=== PATIENT | female | born 1965 | race Caucasian/White ===

== ENCOUNTER 2017-04-19 14:41 | Outpatient (RCR) | payer OTHER, SELFPAY ==
[2017-04-19 15:17] VITALS: BP 135/78; PULSE 76; RESP 18; TEMP 36.1; BMI 31.1
--- NOTE | 2017-04-19 16:39 | PCM.WC.HP ---
(1) Dog bite of calf Status: Acute Current Visit: Yes Qualifiers: Encounter type: initial encounter Laterality: left Qualified Code(s): S81.852A - Open bite, left lower leg, initial encounter; W54.0XXA - Bitten by dog, initial encounter Code(s): S81.859A - Open bite, unspecified lower leg, initial encounter; W54.0XXA - Bitten by dog, initial encounter (2) Edema leg Status: Acute Current Visit: Yes Code(s): R60.0 - Localized edema (3) Pain in left lower leg Status: Acute Current Visit: Yes Code(s): M79.662 - Pain in left lower leg (4) Type 2 diabetes mellitus with other skin ulcer Status: Acute Current Visit: Yes Qualifiers: 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 Went to the ED in [place] where they sutured the bites closed. The wounds did not heal, and the patient has been applying antibiotic ointment BID. She is diabetic with blood sugar better controlled recently. Most recent A1c 7.5. Did have blood work done recently, will get results from her PCP. Has not had vascular testing done recently. Has 3 wounds on the L leg due to dog bites. Dog bite was from her own dog. Past Medical History Past Medical History: DM2, HTN, HLD, hypothyroid Surgical History: noncontributory Allergies/Adverse Reactions: Allergies latex Allergy (Verified 04/19/17 15:50) Rash Lives: Alone Smoking Status: Light Smoker (<10/day) Tobacco Use: Cigarettes Alcohol: Rare Drugs: None Review of Systems Constitutional: Denies: Chills, Fever, Weight Change Eyes: Denies: Pain, Vision Change HEENT: Denies: Difficulty Hearing, Difficulty Swallowing, Sinus Congestion Cardiovascular: Reports: Edema. Denies: Chest Pain, Palpitations Respiratory: Denies: Cough, Shortness of Breath Gastrointestinal: Denies: Diarrhea, Nausea, Vomiting Genitourinary: Denies: Dysuria, Hematuria Skin: Reports: Wounds - L leg Neurological: Reports: Numbness - L ankle Psychiatric: Reports: Anxiety. Denies: Homicidal Ideations, Suicidal Ideations Endocrine: Denies: Heat/ Cold Intolerance, Polydipsia, Polyuria Hematologic/ Lymphatic: Denies: Easy Bruising, Easy Bleeding, Hx of blood clot - Physical Exam Vital Signs Temp Pulse Resp BP 96.9 F L 76 18 135/78 H 04/19/17 15:17 04/19/17 15:17 04/19/17 15:17 04/19/17 15:17 General: Alert, Oriented x3, Cooperative, No apparent distress Extremities: No clubbing, No cyanosis, Capillary Refill Less than 3 Seconds, No Calf Tenderness, Edema - L leg, Peripheral Pulses Normal Skin: Ulcer/ Wound - L santoyo and L calf with no erythema, no malodor, no pus, no calor; does have mild pain, but no other clinical signs of acute bacterial infection noted. See wound/edema assessment below. Wound Measurements and Assessment WC - Nurse 1 - General Ulcer Measurement Start: 04/19/17 15:17 Freq: Status: Active Protocol: Activity Type Activity Date Activity User E-Sign Co-Sign Detail Recorded Client Recorded Date Recorded By Document 04/19/17 15:17 [id number] 04/19/17 15:44 ASHA 04/19/17 15:17 Wound Center Nurse 1 [Ulcer Assessment] 3-left posterior calf -Combined with other wound No -Current Size (cm) - Length 0.6 -Current Size (cm) - Width 0.6 -Current Size (cm) - Depth 0.2 -Total Square Cm 0.36 -Photo Taken Yes -Epithelialization Small 1-33% -Tunneling No -Undermining/Tunneling No -Circular Undermining No -Classification - Flores Grading ( Grade 2 Diabetic Ulcer) -Exudate Amt Small (1-33%) -Exudate Type Serosanguineous -Wound Margin Flat & Intact -Granulation Amt Large (67-100%) -Granulation Quality Red -Slough/Fibrin Yes -Necrosis Amt Small (1-33%) -Necrotic Tissue Type Adherent Slough -Structure Exposed N/A -Texture (Denice-wound Skin Appearance) Assessed Localized Edema -Moisture (Denice-wound Skin Appearance Assessed ) Dry/Scaly -Color (Denice-wound Skin Appearance) Assessed -Temperature (Denice-wound Skin No Abnormality Appearance) (Pt Warm) -Tenderness on Palpation (Denice-wound No Skin Appearance) -Ulcer Cleansing Wound Cleanser -Foul Odor after Cleansing No -Anesthetic Used 5% Lidocaine Gel 2-left anterior santoyo cluster -Combined with other wound No -Current Size (cm) - Length 1.8 -Current Size (cm) - Width 9.8 -Current Size (cm) - Depth 0.2 -Total Square Cm 17.64 -Photo Taken Yes -Epithelialization Medium 34-66% -Tunneling No -Undermining/Tunneling No -Circular Undermining No -Classification - Flores Grading ( Grade 2 Diabetic Ulcer) -Exudate Amt Medium (34-66%) -Exudate Type Serosanguineous -Wound Margin Flat & Intact -Granulation Amt Large (67-100%) -Granulation Quality Red -Slough/Fibrin Yes -Necrosis Amt Medium (34-66%) -Necrotic Tissue Type Adherent Slough -Structure Exposed N/A -Texture (Denice-wound Skin Appearance) Assessed Localized Edema -Moisture (Denice-wound Skin Appearance Assessed ) Dry/Scaly -Color (Denice-wound Skin Appearance) Assessed Hemosiderin Staining -Temperature (Denice-wound Skin No Abnormality Appearance) (Pt Warm) -Tenderness on Palpation (Denice-wound No Skin Appearance) -Ulcer Cleansing Wound Cleanser -Foul Odor after Cleansing No -Anesthetic Used 5% Lidocaine Gel 1-left lateral santoyo superior -Combined with other wound No -Current Size (cm) - Length 0.8 -Current Size (cm) - Width 1.0 -Current Size (cm) - Depth 0.1 -Total Square Cm 0.80 -Photo Taken Yes -Epithelialization Medium 34-66% -Tunneling No -Undermining/Tunneling No -Circular Undermining No -Classification - Flores Grading ( Grade 2 Diabetic Ulcer) -Exudate Amt Small (1-33%) -Exudate Type Serosanguineous -Wound Margin Flat & Intact -Granulation Amt Large (67-100%) -Granulation Quality Red -Slough/Fibrin Yes -Necrosis Amt Small (1-33%) -Necrotic Tissue Type Adherent Slough -Structure Exposed N/A -Texture (Denice-wound Skin Appearance) Assessed Localized Edema -Moisture (Denice-wound Skin Appearance Assessed ) Dry/Scaly -Color (Denice-wound Skin Appearance) Assessed -Temperature (Denice-wound Skin No Abnormality Appearance) (Pt Warm) -Tenderness on Palpation (Denice-wound No Skin Appearance) -Ulcer Cleansing Wound Cleanser -Foul Odor after Cleansing No -Anesthetic Used 5% Lidocaine Gel [Edema Assessment] -Lower Limb Edema Present Yes -Right Calf (cm) 42.0 -Right Ankle (cm) 22.2 -Left Calf (cm) 41.6 -Left Ankle (cm) 25.0 WC - Nurse 2 - General Ulcer CM Notes Start: 04/19/17 15:17 Freq: Status: Active Protocol: Activity Type Activity Date Activity User E-Sign Co-Sign Detail Recorded Client Recorded Date Recorded By Document 04/19/17 16:27 MW [id number] 04/19/17 16:38 MW 04/19/17 16:27 Wound Center Nurse 2 [Procedure/Treatment] 3-left posterior calf -Time 16:30 -Correct Patient Yes -Correct Side, Site, Position Yes -Correct Procedure Yes -Procedure Performed Yes -Type of Procedure Debridement -Clinical Debridement Subcutaneous -Post Debridement Size (cm) - Length 0.5 -Post Debridement Size (cm) - Width 0.8 -Post Debridement Size (cm) - Depth 0.2 -Total Square Cm 0.40 2-left anterior santoyo cluster -Time 16:36 -Correct Patient Yes -Correct Side, Site, Position Yes -Correct Procedure Yes -Procedure Performed Yes -Type of Procedure Debridement -Clinical Debridement Subcutaneous -Post Debridement Size (cm) - Length 10.2 -Post Debridement Size (cm) - Width 1.2 -Post Debridement Size (cm) - Depth 0.3 -Total Square Cm 12.24 -Wound/Ulcer Outcome Not Healed -Ulcer Cleansing Rinsed/ Irrigated with Saline -Foul Odor after Cleansing No -Bioengineered Tissue No -Bleeding Controlled with Pressure -Treatment Response Procedure Tolerated Well 1-left lateral santoyo superior -Time 16:35 -Correct Patient Yes -Correct Side, Site, Position Yes -Correct Procedure Yes -Procedure Performed Yes -Type of Procedure Debridement -Clinical Debridement Subcutaneous -Post Debridement Size (cm) - Length 0.9 -Post Debridement Size (cm) - Width 1.0 -Post Debridement Size (cm) - Depth 0.1 -Total Square Cm 0.90 -Wound/Ulcer Outcome Not Healed -Ulcer Cleansing Rinsed/ Irrigated with Saline -Foul Odor after Cleansing No -Bioengineered Tissue No -Bleeding Controlled with NA -Treatment Response Procedure Tolerated Well [See Physician Procedure note for Specifics] Pain Scale: 0-10 Numeric [Pain] -Is Patient Pain Free? Yes Musculoskeletal: No Tenderness to Palpation of Joints or Extremities, No Muscle Wasting Neurological: Deep Tendon Reflexes 2+/4 and Symmetrical, Neuro grossly intact, Motor Exam 5/5 strength throughout, Muscle tone normal, Sensory exam intact to light touch and pain - except absent light touch to anterior L ankle, Coordination normal, Gait narrow based and stable Psych/Mental Status: Alert and oriented to time, place, person, mood and affect - wnl Debridement Note Post-Debridement Measurements/Treatment WC - Nurse 2 - General Ulcer CM Notes Start: 04/19/17 15:17 Freq: Status: Active Protocol: Activity Type Activity Date Activity User E-Sign Co-Sign Detail Recorded Client Recorded Date Recorded By Document 04/19/17 16:27 MW [id number] 04/19/17 16:38 MW 04/19/17 16:27 Wound Center Nurse 2 3-left posterior calf -Time 16:30 -Correct Patient Yes -Correct Side, Site, Position Yes -Correct Procedure Yes -Procedure Performed Yes -Type of Procedure Debridement -Clinical Debridement Subcutaneous -Post Debridement Size (cm) - Length 0.5 -Post Debridement Size (cm) - Width 0.8 -Post Debridement Size (cm) - Depth 0.2 -Total Square Cm 0.40 2-left anterior santoyo cluster -Time 16:36 -Correct Patient Yes -Correct Side, Site, Position Yes -Correct Procedure Yes -Procedure Performed Yes -Type of Procedure Debridement -Clinical Debridement Subcutaneous -Post Debridement Size (cm) - Length 10.2 -Post Debridement Size (cm) - Width 1.2 -Post Debridement Size (cm) - Depth 0.3 -Total Square Cm 12.24 -Wound/Ulcer Outcome Not Healed -Ulcer Cleansing Rinsed/ Irrigated with Saline -Foul Odor after Cleansing No -Bioengineered Tissue No -Bleeding Controlled with Pressure -Treatment Response Procedure Tolerated Well 1-left lateral santoyo superior -Time 16:35 -Correct Patient Yes -Correct Side, Site, Position Yes -Correct Procedure Yes -Procedure Performed Yes -Type of Procedure Debridement -Clinical Debridement Subcutaneous -Post Debridement Size (cm) - Length 0.9 -Post Debridement Size (cm) - Width 1.0 -Post Debridement Size (cm) - Depth 0.1 -Total Square Cm 0.90 -Wound/Ulcer Outcome Not Healed -Ulcer Cleansing Rinsed/ Irrigated with Saline -Foul Odor after Cleansing No -Bioengineered Tissue No -Bleeding Controlled with NA -Treatment Response Procedure Tolerated Well Pain Scale: 0-10 Numeric Is Patient Pain Free? Yes Wound debrided: L santoyo x 2, L calf Laterality: Left Wound Grade/Stage: Full thickness traumatic wounds Type of Debridement: Excisional debridement Anesthesia Used: 4% Lidocaine Solution Depth: Down to and including healthy tissue, in the subcutaneous layer Percentage of wound debrided: 100 Instrument Used: 3mm curette Tissue Removed: fibrous slough Severity: Fat Layer Exposed Amount of bleeding with debridement: Mild Bleeding Controlled with: Pressure, Compression and gauze Patient tolerated procedure well Assessment/Plan Active Problems Dog bite of calf (Acute) Edema leg (Acute) Pain in left lower leg (Acute) Type 2 diabetes mellitus with other skin ulcer (Acute) Assessment: See diagnoses 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 SQ/excisional debridement L leg wounds as above. Stop previous dressings. Start daniel, collagen hydrogel, adaptic, ABDs. Moderate compression spandagrip for edema. Venous duplex ordered. Pt refuses arterial testing due to location of wounds, but pedal pulses are strongly palpable and confirmed with handheld doppler. If wounds do not improve, will order arterial testing. Pt recently had lab work done, will obtain from her PCP. Discussed importance of tobacco cessation and smoking's effects on wound healing. Discussed importance of tight blood sugar control. Discussed importance of adequate nutrition, especially increased protein intake, to promote healing. Keep dry in shower, wash separately with dressing changes. Monitor for redness, pus, malodor, warmth, increased pain, increased swelling as well as for N/V/F/C and go to the ED with these. RTC 1 week, call with questions prior to f/u appt.
--- NOTE | 2017-04-19 16:49 | HP.PCM_ITS ---
(1) Dog bite of calf Status: Acute Current Visit: Yes Qualifiers: Encounter type: initial encounter Laterality: left Qualified Code(s): S81.852A - Open bite, left lower leg, initial encounter; W54.0XXA - Bitten by dog, initial encounter Code(s): S81.859A - Open bite, unspecified lower leg, initial encounter; W54.0XXA - Bitten by dog, initial encounter (2) Edema leg Status: Acute Current Visit: Yes Code(s): R60.0 - Localized edema (3) Pain in left lower leg Status: Acute Current Visit: Yes Code(s): M79.662 - Pain in left lower leg (4) Type 2 diabetes mellitus with other skin ulcer Status: Acute Current Visit: Yes Qualifiers: Diabetes mellitus long term care administrator insulin use: unspecified half-way insulin use status Qualified Code(s): E11.622 - Type 2 diabetes mellitus with other skin ulcer; L98.499 - Non-pressure chronic ulcer of skin of other sites with unspecified severity Code(s): E11.622 - Type 2 diabetes mellitus with other skin ulcer; L98.499 - Non -pressure chronic ulcer of skin of other sites with unspecified severity History of Present Illness Date of Service: 04/19/17 Chief Complaint: L calf and leg wounds secondary to dog bite History of Wound: L leg and santoyo wounds secondary to dog bite on March 15. Went to the ED in [place] where they sutured the bites closed. The wounds did not heal, and the patient has been applying antibiotic ointment BID. She is diabetic with blood sugar better controlled recently. Most recent A1c 7.5. Did have blood work done recently, will get results from her PCP. Has not had vascular testing done recently. Has 3 wounds on the L leg due to dog bites. Dog bite was from her own dog. Past Medical History Past Medical History: DM2, HTN, HLD, hypothyroid Surgical History: noncontributory Allergies/Adverse Reactions: Allergies latex Allergy (Verified 04/19/17 15:50) Rash Lives: Alone Smoking Status: Light Smoker (<10/day) Tobacco Use: Cigarettes Alcohol: Rare Drugs: None Review of Systems Constitutional: Denies: Chills, Fever, Weight Change Eyes: Denies: Pain, Vision Change HEENT: Denies: Difficulty Hearing, Difficulty Swallowing, Sinus Congestion Cardiovascular: Reports: Edema. Denies: Chest Pain, Palpitations Respiratory: Denies: Cough, Shortness of Breath Gastrointestinal: Denies: Diarrhea, Nausea, Vomiting Genitourinary: Denies: Dysuria, Hematuria Skin: Reports: Wounds - L leg Neurological: Reports: Numbness - L ankle Psychiatric: Reports: Anxiety. Denies: Homicidal Ideations, Suicidal Ideations Endocrine: Denies: Heat/ Cold Intolerance, Polydipsia, Polyuria Hematologic/ Lymphatic: Denies: Easy Bruising, Easy Bleeding, Hx of blood clot - Physical Exam Vital Signs Temp Pulse Resp BP 96.9 F L 76 18 135/78 H 04/19/17 15:17 04/19/17 15:17 04/19/17 15:17 04/19/17 15:17 General: Alert, Oriented x3, Cooperative, No apparent distress Extremities: No clubbing, No cyanosis, Capillary Refill Less than 3 Seconds, No Calf Tenderness, Edema - L leg, Peripheral Pulses Normal Skin: Ulcer/ Wound - L santoyo and L calf with no erythema, no malodor, no pus, no calor; does have mild pain, but no other clinical signs of acute bacterial infection noted. See wound/edema assessment below. Wound Measurements and Assessment WC - Nurse 1 - General Ulcer Measurement Start: 04/19/17 15:17 Freq: Status: Active Protocol: Activity Type Activity Date Activity User E-Sign Co-Sign Detail Recorded Client Recorded Date Recorded By Document 04/19/17 15:17 [id number] 04/19/17 15:44 ASHA 04/19/17 15:17 Wound Center Nurse 1 [Ulcer Assessment] 3-left posterior calf -Combined with other wound No -Current Size (cm) - Length 0.6 -Current Size (cm) - Width 0.6 -Current Size (cm) - Depth 0.2 -Total Square Cm 0.36 -Photo Taken Yes -Epithelialization Small 1-33% -Tunneling No -Undermining/Tunneling No -Circular Undermining No -Classification - Flores Grading ( Grade 2 Diabetic Ulcer) -Exudate Amt Small (1-33%) -Exudate Type Serosanguineous -Wound Margin Flat & Intact -Granulation Amt Large (67-100%) -Granulation Quality Red -Slough/Fibrin Yes -Necrosis Amt Small (1-33%) -Necrotic Tissue Type Adherent Slough -Structure Exposed N/A -Texture (Denice-wound Skin Appearance) Assessed Localized Edema -Moisture (Denice-wound Skin Appearance Assessed ) Dry/Scaly -Color (Denice-wound Skin Appearance) Assessed -Temperature (Denice-wound Skin No Abnormality Appearance) (Pt Warm) -Tenderness on Palpation (Denice-wound No Skin Appearance) -Ulcer Cleansing Wound Cleanser -Foul Odor after Cleansing No -Anesthetic Used 5% Lidocaine Gel 2-left anterior santoyo cluster -Combined with other wound No -Current Size (cm) - Length 1.8 -Current Size (cm) - Width 9.8 -Current Size (cm) - Depth 0.2 -Total Square Cm 17.64 -Photo Taken Yes -Epithelialization Medium 34-66% -Tunneling No -Undermining/Tunneling No -Circular Undermining No -Classification - Flores Grading ( Grade 2 Diabetic Ulcer) -Exudate Amt Medium (34-66%) -Exudate Type Serosanguineous -Wound Margin Flat & Intact -Granulation Amt Large (67-100%) -Granulation Quality Red -Slough/Fibrin Yes -Necrosis Amt Medium (34-66%) -Necrotic Tissue Type Adherent Slough -Structure Exposed N/A -Texture (Denice-wound Skin Appearance) Assessed Localized Edema -Moisture (Denice-wound Skin Appearance Assessed ) Dry/Scaly -Color (Denice-wound Skin Appearance) Assessed Hemosiderin Staining -Temperature (Denice-wound Skin No Abnormality Appearance) (Pt Warm) -Tenderness on Palpation (Denice-wound No Skin Appearance) -Ulcer Cleansing Wound Cleanser -Foul Odor after Cleansing No -Anesthetic Used 5% Lidocaine Gel 1-left lateral santoyo superior -Combined with other wound No -Current Size (cm) - Length 0.8 -Current Size (cm) - Width 1.0 -Current Size (cm) - Depth 0.1 -Total Square Cm 0.80 -Photo Taken Yes -Epithelialization Medium 34-66% -Tunneling No -Undermining/Tunneling No -Circular Undermining No -Classification - Flores Grading ( Grade 2 Diabetic Ulcer) -Exudate Amt Small (1-33%) -Exudate Type Serosanguineous -Wound Margin Flat & Intact -Granulation Amt Large (67-100%) -Granulation Quality Red -Slough/Fibrin Yes -Necrosis Amt Small (1-33%) -Necrotic Tissue Type Adherent Slough -Structure Exposed N/A -Texture (Denice-wound Skin Appearance) Assessed Localized Edema -Moisture (Denice-wound Skin Appearance Assessed ) Dry/Scaly -Color (Denice-wound Skin Appearance) Assessed -Temperature (Denice-wound Skin No Abnormality Appearance) (Pt Warm) -Tenderness on Palpation (Denice-wound No Skin Appearance) -Ulcer Cleansing Wound Cleanser -Foul Odor after Cleansing No -Anesthetic Used 5% Lidocaine Gel [Edema Assessment] -Lower Limb Edema Present Yes -Right Calf (cm) 42.0 -Right Ankle (cm) 22.2 -Left Calf (cm) 41.6 -Left Ankle (cm) 25.0 WC - Nurse 2 - General Ulcer CM Notes Start: 04/19/17 15:17 Freq: Status: Active Protocol: Activity Type Activity Date Activity User E-Sign Co-Sign Detail Recorded Client Recorded Date Recorded By Document 04/19/17 16:27 MW [id number] 04/19/17 16:38 MW 04/19/17 16:27 Wound Center Nurse 2 [Procedure/Treatment] 3-left posterior calf -Time 16:30 -Correct Patient Yes -Correct Side, Site, Position Yes -Correct Procedure Yes -Procedure Performed Yes -Type of Procedure Debridement -Clinical Debridement Subcutaneous -Post Debridement Size (cm) - Length 0.5 -Post Debridement Size (cm) - Width 0.8 -Post Debridement Size (cm) - Depth 0.2 -Total Square Cm 0.40 2-left anterior santoyo cluster -Time 16:36 -Correct Patient Yes -Correct Side, Site, Position Yes -Correct Procedure Yes -Procedure Performed Yes -Type of Procedure Debridement -Clinical Debridement Subcutaneous -Post Debridement Size (cm) - Length 10.2 -Post Debridement Size (cm) - Width 1.2 -Post Debridement Size (cm) - Depth 0.3 -Total Square Cm 12.24 -Wound/Ulcer Outcome Not Healed -Ulcer Cleansing Rinsed/ Irrigated with Saline -Foul Odor after Cleansing No -Bioengineered Tissue No -Bleeding Controlled with Pressure -Treatment Response Procedure Tolerated Well 1-left lateral santoyo superior -Time 16:35 -Correct Patient Yes -Correct Side, Site, Position Yes -Correct Procedure Yes -Procedure Performed Yes -Type of Procedure Debridement -Clinical Debridement Subcutaneous -Post Debridement Size (cm) - Length 0.9 -Post Debridement Size (cm) - Width 1.0 -Post Debridement Size (cm) - Depth 0.1 -Total Square Cm 0.90 -Wound/Ulcer Outcome Not Healed -Ulcer Cleansing Rinsed/ Irrigated with Saline -Foul Odor after Cleansing No -Bioengineered Tissue No -Bleeding Controlled with NA -Treatment Response Procedure Tolerated Well [See Physician Procedure note for Specifics] Pain Scale: 0-10 Numeric [Pain] -Is Patient Pain Free? Yes Musculoskeletal: No Tenderness to Palpation of Joints or Extremities, No Muscle Wasting Neurological: Deep Tendon Reflexes 2+/4 and Symmetrical, Neuro grossly intact, Motor Exam 5/5 strength throughout, Muscle tone normal, Sensory exam intact to light touch and pain - except absent light touch to anterior L ankle, Coordination normal, Gait narrow based and stable Psych/Mental Status: Alert and oriented to time, place, person, mood and affect - wnl Debridement Note Post-Debridement Measurements/Treatment WC - Nurse 2 - General Ulcer CM Notes Start: 04/19/17 15:17 Freq: Status: Active Protocol: Activity Type Activity Date Activity User E-Sign Co-Sign Detail Recorded Client Recorded Date Recorded By Document 04/19/17 16:27 MW [id number] 04/19/17 16:38 MW 04/19/17 16:27 Wound Center Nurse 2 3-left posterior calf -Time 16:30 -Correct Patient Yes -Correct Side, Site, Position Yes -Correct Procedure Yes -Procedure Performed Yes -Type of Procedure Debridement -Clinical Debridement Subcutaneous -Post Debridement Size (cm) - Length 0.5 -Post Debridement Size (cm) - Width 0.8 -Post Debridement Size (cm) - Depth 0.2 -Total Square Cm 0.40 2-left anterior santoyo cluster -Time 16:36 -Correct Patient Yes -Correct Side, Site, Position Yes -Correct Procedure Yes -Procedure Performed Yes -Type of Procedure Debridement -Clinical Debridement Subcutaneous -Post Debridement Size (cm) - Length 10.2 -Post Debridement Size (cm) - Width 1.2 -Post Debridement Size (cm) - Depth 0.3 -Total Square Cm 12.24 -Wound/Ulcer Outcome Not Healed -Ulcer Cleansing Rinsed/ Irrigated with Saline -Foul Odor after Cleansing No -Bioengineered Tissue No -Bleeding Controlled with Pressure -Treatment Response Procedure Tolerated Well 1-left lateral santoyo superior -Time 16:35 -Correct Patient Yes -Correct Side, Site, Position Yes -Correct Procedure Yes -Procedure Performed Yes -Type of Procedure Debridement -Clinical Debridement Subcutaneous -Post Debridement Size (cm) - Length 0.9 -Post Debridement Size (cm) - Width 1.0 -Post Debridement Size (cm) - Depth 0.1 -Total Square Cm 0.90 -Wound/Ulcer Outcome Not Healed -Ulcer Cleansing Rinsed/ Irrigated with Saline -Foul Odor after Cleansing No -Bioengineered Tissue No -Bleeding Controlled with NA -Treatment Response Procedure Tolerated Well Pain Scale: 0-10 Numeric Is Patient Pain Free? Yes Wound debrided: L santoyo x 2, L calf Laterality: Left Wound Grade/Stage: Full thickness traumatic wounds Type of Debridement: Excisional debridement Anesthesia Used: 4% Lidocaine Solution Depth: Down to and including healthy tissue, in the subcutaneous layer Percentage of wound debrided: 100 Instrument Used: 3mm curette Tissue Removed: fibrous slough Severity: Fat Layer Exposed Amount of bleeding with debridement: Mild Bleeding Controlled with: Pressure, Compression and gauze Patient tolerated procedure well Assessment/Plan Active Problems Dog bite of calf (Acute) Edema leg (Acute) Pain in left lower leg (Acute) Type 2 diabetes mellitus with other skin ulcer (Acute) Assessment: See diagnoses Plan: 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 SQ/excisional debridement L leg wounds as above. Stop previous dressings. Start daniel, collagen hydrogel, adaptic, ABDs. Moderate compression spandagrip for edema. Venous duplex ordered. Pt refuses arterial testing due to location of wounds, but pedal pulses are strongly palpable and confirmed with handheld doppler. If wounds do not improve, will order arterial testing. Pt recently had lab work done, will obtain from her PCP. Discussed importance of tobacco cessation and smoking's effects on wound healing. Discussed importance of tight blood sugar control. Discussed importance of adequate nutrition, especially increased protein intake, to promote healing. Keep dry in shower, wash separately with dressing changes. Monitor for redness , pus, malodor, warmth, increased pain, increased swelling as well as for N/V/F/ C and go to the ED with these. RTC 1 week, call with questions prior to f/u appt.
== END 2017-04-20 23:59 ==
LOC: WC 14:41
PROVIDERS: Family Provider Nurse Practitioner Family; PCP Nurse Practitioner Family; Visit Provider Podiatrist Foot & Ankle Surgery
DX: S81.852A Open bite, left lower leg, initial encounter (principal); W54.0XXA Bitten by dog, initial encounter; R60.0 Localized edema; I10 Essential (primary) hypertension; E78.5 Hyperlipidemia, unspecified; E03.9 Hypothyroidism, unspecified; F17.210 Nicotine dependence, cigarettes, uncomplicated; E11.9 Type 2 diabetes mellitus without complications
CPT/HCPCS: 11042; 99203; G0463

== ENCOUNTER 2017-04-26 13:57 | Outpatient (RCR) | payer OTHER, SELFPAY ==
[2017-04-21 01:18] VITALS: PULSE 76; RESP 18; TEMP 36.1
--- NOTE | 2017-04-26 14:05 | VDLE_ITS ---
Reason For Study: Non-healing wound RIGHT LEFT CFV is compressible, spontaneous, phasic, CFV is compressible, spontaneous, phasic, competent and demonstrates normal competent, and demonstrates normal augmentation. augmentation. FV is compressible, spontaneous, phasic, FV is compressible, spontaneous, phasic, competent and demonstrates normal competent and demonstrates normal augmentation. augmentation. POP V is compressible, spontaneous, phasic, POP V is compressible, spontaneous, phasic, competent and demonstrates normal competent and demonstrates normal augmentation. augmentation. T/P Trunk is compressible. T/P Trunk is compressible. PTV is compressible. PTV is compressible. RT PerV is compressible. LT PerV is compressible. SFJ is competent SFJ is INCOMPETENT with reflux greater GSV is INCOMPETENT with reflux greater than .5 sec than .5 sec and diameter of .32 x .36 cm GSV is competent above knee SSV is competent. GSV is INCOMPETENT below knee with reflux Procedure greater than .5 sec and diameter of .38 Exam performed in department. x .40 cm A preliminary report was called and/or faxed SSV is INCOMPETENT with reflux greater to [facility]. than .5 sec and diameter of .33 x .34 cm. Interpretation Summary Deep veins of the lower extremities are bilaterally patent and compressible segmentally. There is no evidence of deep vein thrombosis on either side. Valvular competence appears intact within the proximal deep venous systems bilaterally. The greater saphenous veins appear bilaterally patent and compressible segmentally. The right sapheno-femoral junction is competent . The left sapheno- femoral junction is incompetent . The right greater saphenous vein appears segmentally incompetent. The left greater saphenous vein appears competent above the knee. The left greater saphenous vein appears incompetent below the knee. The right small saphenous vein is patent and competent. The left small saphenous vein is patent and incompetent. Ordering Physician: Braydon Robb Referring Physician: Geraldine Valdes NP-C Performed By: Consuelo Aceves RVT
== END 2017-05-21 23:59 ==
LOC: CVS 13:57
PROVIDERS: Family Provider Nurse Practitioner Family; PCP Nurse Practitioner Family; Visit Provider Podiatrist Foot & Ankle Surgery
DX: R60.0 Localized edema (principal); I87.2 Venous insufficiency (chronic) (peripheral); S81.852A Open bite, left lower leg, initial encounter; W54.0XXA Bitten by dog, initial encounter; E11.9 Type 2 diabetes mellitus without complications
CPT/HCPCS: 11042; 29581; 93970

== ENCOUNTER 2017-04-26 14:50 | Outpatient (RCR) | payer OTHER, SELFPAY ==
[2017-04-26 14:54] VITALS: BP 128/66; PULSE 80; RESP 18; TEMP 37.3
--- NOTE | 2017-04-26 17:08 | PCM.WC.PN ---
(1) Venous insufficiency (chronic) (peripheral) Status: Acute Current Visit: Yes Code(s): I87.2 - Venous insufficiency (chronic) (peripheral) (2) Dog bite of calf Status: Acute Current Visit: Yes Qualifiers: Encounter type: initial encounter Laterality: left Qualified Code(s): S81.852A - Open bite, left lower leg, initial encounter; W54.0XXA - Bitten by dog, initial encounter Code(s): S81.859A - Open bite, unspecified lower leg, initial encounter; W54.0XXA - Bitten by dog, initial encounter (3) Edema leg Status: Chronic Current Visit: Yes Code(s): R60.0 - Localized edema (4) Type 2 diabetes mellitus with other skin ulcer Status: Acute Current Visit: Yes Qualifiers: Diabetes mellitus jail insulin use: unspecified terminal superintendent insulin use status Code(s): E11.622 - Type 2 diabetes mellitus with other skin ulcer; L98.499 - Non-pressure chronic ulcer of skin of other sites with unspecified severity Type of Wound Date of Service: 04/26/17 Chief Complaint: L calf and leg wounds secondary to dog bite History of Wound: L leg and santoyo wounds secondary to dog bite on March 15. Went to the ED in [place] where they sutured the bites closed. The wounds did not heal, and the patient has been applying antibiotic ointment BID. She is diabetic with blood sugar better controlled recently. Most recent A1c 7.5. Did have blood work done recently, will get results from her PCP. Has not had vascular testing done recently. Has 3 wounds on the L leg due to dog bites. Dog bite was from her own dog. 04/26--Applying daniel and dry dressing every other day. C/o pain, but denies redness, pus, malodor, warmth. Denies N/V/F/C. Had venous duplex which revealed multiple incompetent veins in the LLE. Referral to Dr. Hummel provided today for eval for possible EVLA. Progress of Wound: Slightly improved. - Physical Exam Vital Signs Temp Pulse Resp BP 99.1 F 80 18 128/66 H 04/26/17 14:54 04/26/17 14:54 04/26/17 14:54 04/26/17 14:54 General: Alert, Oriented x3, Cooperative, No apparent distress Extremities: Edema, Peripheral Pulses Normal Skin: Ulcer/ Wound - L santoyo, L calf with no erythema, no malodor, no pus, no calor. There is pain, but no other clinical signs of acute bacterial infection noted. See wound/edema assessment below. Wound Measurements and Assessment WC - Nurse 1 - General Ulcer Measurement Start: 04/26/17 14:54 Freq: Status: Active Protocol: Activity Type Activity Date Activity User E-Sign Co-Sign Detail Recorded Client Recorded Date Recorded By Document 04/26/17 14:54 [id number] 04/26/17 15:01 04/26/17 14:54 Wound Center Nurse 1 [Ulcer Assessment] 3-left posterior calf -Combined with other wound No -Current Size (cm) - Length 0.8 -Current Size (cm) - Width 1.2 -Current Size (cm) - Depth 0.1 -Total Square Cm 0.96 -Photo Taken No -Epithelialization Medium 34-66% -Tunneling No -Undermining/Tunneling No -Circular Undermining No -Exudate Amt Small (1-33%) -Exudate Type Serosanguineous -Wound Margin Flat & Intact -Granulation Amt Large (67-100%) -Granulation Quality Red -Slough/Fibrin Yes -Necrosis Amt Small (1-33%) -Necrotic Tissue Type Adherent Slough -Structure Exposed N/A -Texture (Denice-wound Skin Appearance) Assessed Localized Edema -Moisture (Denice-wound Skin Appearance Assessed ) Dry/Scaly -Color (Denice-wound Skin Appearance) Assessed -Temperature (Denice-wound Skin No Abnormality Appearance) (Pt Warm) -Tenderness on Palpation (Denice-wound No Skin Appearance) -Ulcer Cleansing Rinsed/ Irrigated with Saline -Foul Odor after Cleansing No -Anesthetic Used 4% Lidocaine Solution 2-left anterior santoyo cluster -Combined with other wound No -Current Size (cm) - Length 10.0 -Current Size (cm) - Width 1.7 -Total Square Cm 17.00 -Photo Taken No -Epithelialization Small 1-33% -Tunneling No -Undermining/Tunneling No -Circular Undermining No -Exudate Amt Small (1-33%) -Exudate Type Serosanguineous -Wound Margin Flat & Intact -Granulation Amt Small (1-33%) -Granulation Quality Red -Slough/Fibrin Yes -Necrosis Amt Medium (34-66%) -Necrotic Tissue Type Adherent Slough -Structure Exposed N/A -Texture (Denice-wound Skin Appearance) Assessed Localized Edema -Moisture (Denice-wound Skin Appearance Assessed ) Dry/Scaly -Color (Denice-wound Skin Appearance) Assessed -Temperature (Denice-wound Skin No Abnormality Appearance) (Pt Warm) -Tenderness on Palpation (Denice-wound No Skin Appearance) -Ulcer Cleansing Rinsed/ Irrigated with Saline -Foul Odor after Cleansing No -Anesthetic Used 4% Lidocaine Solution 1-left lateral santoyo superior -Combined with other wound No -Current Size (cm) - Length 0.7 -Current Size (cm) - Width 0.1 -Current Size (cm) - Depth 0.1 -Total Square Cm 0.07 -Photo Taken No -Epithelialization Medium 34-66% -Tunneling No -Undermining/Tunneling No -Circular Undermining No -Exudate Amt Small (1-33%) -Exudate Type Serosanguineous -Wound Margin Flat & Intact -Granulation Amt Large (67-100%) -Granulation Quality Red -Slough/Fibrin Yes -Necrosis Amt Small (1-33%) -Necrotic Tissue Type Adherent Slough -Structure Exposed N/A -Texture (Denice-wound Skin Appearance) Assessed Localized Edema -Moisture (Denice-wound Skin Appearance Assessed ) Dry/Scaly -Color (Denice-wound Skin Appearance) Assessed -Temperature (Denice-wound Skin No Abnormality Appearance) (Pt Warm) -Tenderness on Palpation (Denice-wound No Skin Appearance) -Ulcer Cleansing Rinsed/ Irrigated with Saline -Foul Odor after Cleansing No -Anesthetic Used 4% Lidocaine Solution [Edema Assessment] -Lower Limb Edema Present Yes -Left Calf (cm) 41.0 -Left Ankle (cm) 25.0 WC - Nurse 2 - General Ulcer CM Notes Start: 04/26/17 14:54 Freq: Status: Active Protocol: Activity Type Activity Date Activity User E-Sign Co-Sign Detail Recorded Client Recorded Date Recorded By Document 04/26/17 15:37 MW [id number] 04/26/17 15:41 MW 04/26/17 15:37 Wound Center Nurse 2 [Procedure/Treatment] 3-left posterior calf -Time 15:37 -Correct Patient Yes -Correct Side, Site, Position Yes -Correct Procedure Yes -Procedure Performed Yes -Type of Procedure Debridement -Clinical Debridement Subcutaneous -Post Debridement Size (cm) - Length 0.9 -Post Debridement Size (cm) - Width 1.2 -Post Debridement Size (cm) - Depth 0.1 -Total Square Cm 1.08 -Wound/Ulcer Outcome Not Healed -Ulcer Cleansing Rinsed/ Irrigated with Saline -Foul Odor after Cleansing No -Bioengineered Tissue No -Bleeding Controlled with Pressure -Treatment Response Procedure Tolerated Well 2-left anterior santoyo cluster -Time 15:37 -Correct Patient Yes -Correct Side, Site, Position Yes -Correct Procedure Yes -Procedure Performed Yes -Type of Procedure Debridement -Clinical Debridement Subcutaneous -Post Debridement Size (cm) - Length 10.1 -Post Debridement Size (cm) - Width 1.8 -Post Debridement Size (cm) - Depth 0.3 -Total Square Cm 18.18 -Wound/Ulcer Outcome Not Healed -Ulcer Cleansing Rinsed/ Irrigated with Saline -Foul Odor after Cleansing No -Bioengineered Tissue No -Bleeding Controlled with Pressure -Treatment Response Procedure Tolerated Well 1-left lateral santoyo superior -Time 15:38 -Correct Patient Yes -Correct Side, Site, Position Yes -Correct Procedure Yes -Procedure Performed Yes -Type of Procedure Debridement -Clinical Debridement Subcutaneous -Post Debridement Size (cm) - Length 0.8 -Post Debridement Size (cm) - Width 0.2 -Post Debridement Size (cm) - Depth 0.1 -Total Square Cm 0.16 -Wound/Ulcer Outcome Not Healed -Ulcer Cleansing Wound Cleanser -Foul Odor after Cleansing No -Bioengineered Tissue No -Bleeding Controlled with Pressure -Treatment Response Procedure Tolerated Well [See Physician Procedure note for Specifics] Pain Scale: 0-10 Numeric [Pain] -Is Patient Pain Free? Yes Debridement Note Post-Debridement Measurements/Treatment WC - Nurse 2 - General Ulcer CM Notes Start: 04/26/17 14:54 Freq: Status: Active Protocol: Activity Type Activity Date Activity User E-Sign Co-Sign Detail Recorded Client Recorded Date Recorded By Document 04/26/17 15:37 MW [id number] 04/26/17 15:41 MW 04/26/17 15:37 Wound Center Nurse 2 3-left posterior calf -Time 15:37 -Correct Patient Yes -Correct Side, Site, Position Yes -Correct Procedure Yes -Procedure Performed Yes -Type of Procedure Debridement -Clinical Debridement Subcutaneous -Post Debridement Size (cm) - Length 0.9 -Post Debridement Size (cm) - Width 1.2 -Post Debridement Size (cm) - Depth 0.1 -Total Square Cm 1.08 -Wound/Ulcer Outcome Not Healed -Ulcer Cleansing Rinsed/ Irrigated with Saline -Foul Odor after Cleansing No -Bioengineered Tissue No -Bleeding Controlled with Pressure -Treatment Response Procedure Tolerated Well 2-left anterior santoyo cluster -Time 15:37 -Correct Patient Yes -Correct Side, Site, Position Yes -Correct Procedure Yes -Procedure Performed Yes -Type of Procedure Debridement -Clinical Debridement Subcutaneous -Post Debridement Size (cm) - Length 10.1 -Post Debridement Size (cm) - Width 1.8 -Post Debridement Size (cm) - Depth 0.3 -Total Square Cm 18.18 -Wound/Ulcer Outcome Not Healed -Ulcer Cleansing Rinsed/ Irrigated with Saline -Foul Odor after Cleansing No -Bioengineered Tissue No -Bleeding Controlled with Pressure -Treatment Response Procedure Tolerated Well 1-left lateral santoyo superior -Time 15:38 -Correct Patient Yes -Correct Side, Site, Position Yes -Correct Procedure Yes -Procedure Performed Yes -Type of Procedure Debridement -Clinical Debridement Subcutaneous -Post Debridement Size (cm) - Length 0.8 -Post Debridement Size (cm) - Width 0.2 -Post Debridement Size (cm) - Depth 0.1 -Total Square Cm 0.16 -Wound/Ulcer Outcome Not Healed -Ulcer Cleansing Wound Cleanser -Foul Odor after Cleansing No -Bioengineered Tissue No -Bleeding Controlled with Pressure -Treatment Response Procedure Tolerated Well Pain Scale: 0-10 Numeric Is Patient Pain Free? Yes Wound debrided: L leg x 3 Laterality: Left Wound Grade/Stage: full thickness originally trauma non-healing d/t venous insufficiency Type of Debridement: Excisional debridement Anesthesia Used: 4% Lidocaine Solution Depth: Down to and including healthy tissue, in the subcutaneous layer Percentage of wound debrided: 100 Instrument Used: 3mm curette Tissue Removed: fibrous slough Severity: Fat Layer Exposed Amount of bleeding with debridement: Mild Bleeding Controlled with: Pressure, Compression and gauze Patient tolerated procedure well Assessment/Plan Active Problems Dog bite of calf (Acute) Edema leg (Chronic) Type 2 diabetes mellitus with other skin ulcer (Acute) Venous insufficiency (chronic) (peripheral) (Acute) Assessment: See diagnoses Plan: Exam. A total of 15 minutes was spent [id number] with the patient in addition to time spent on debridment, and over half of that time was spent on counsling, coordination of care, and discussing her new diagnosis. SQ/excisional debridement L leg ulcers as above. Stop daniel, collagen hydrogel, adaptic, ABDs. Venous study reviewed. Start hydrofera blue d/t pain, increase compression with 3M 2-layer coban wrap. Return on for nurse visit for compression wrap change, then 1 week with me. Pt continues to refuse arterial testing due to location of ulcers, but pedal pulses are strongly palpable and confirmed with handheld doppler. If ulcers do not improve, will order arterial testing. Pt recently had lab work done, will obtain from her PCP--did not yet receive. Discussed importance of tobacco cessation and smoking's effects on wound healing. Discussed importance of tight blood sugar control. Discussed importance of adequate nutrition, especially increased protein intake, to promote healing. Keep dry in shower, will wash L leg with wrap changes. Monitor for redness, pus, malodor, warmth, increased pain, increased swelling as well as for N/V/F/C and go to the ED with these. RTC 1 week, call with questions prior to f/u appt. Referral to Dr. Hummel provided for venous insufficiency with non-healing ulcers LLE. Also has vein incompetence in RLE.
--- NOTE | 2017-04-26 17:14 | PN.PCM_ITS ---
(1) Venous insufficiency (chronic) (peripheral) Status: Acute Current Visit: Yes Code(s): I87.2 - Venous insufficiency ( chronic) (peripheral) (2) Dog bite of calf Status: Acute Current Visit: Yes Qualifiers: Encounter type: initial encounter Laterality: left Qualified Code(s): S81.852A - Open bite, left lower leg, initial encounter; W54.0XXA - Bitten by dog, initial encounter Code(s): S81.859A - Open bite, unspecified lower leg, initial encounter; W54.0XXA - Bitten by dog, initial encounter (3) Edema leg Status: Chronic Current Visit: Yes Code(s): R60.0 - Localized edema (4) Type 2 diabetes mellitus with other skin ulcer Status: Acute Current Visit: Yes Qualifiers: Diabetes mellitus alf insulin use: unspecified 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 Went to the ED in [place] where they sutured the bites closed. The wounds did not heal, and the patient has been applying antibiotic ointment BID. She is diabetic with blood sugar better controlled recently. Most recent A1c 7.5. Did have blood work done recently, will get results from her PCP. Has not had vascular testing done recently. Has 3 wounds on the L leg due to dog bites. Dog bite was from her own dog. 04/26--Applying daniel and dry dressing every other day. C/o pain, but denies redness, pus, malodor, warmth. Denies N/V/F/C. Had venous duplex which revealed multiple incompetent veins in the LLE. Referral to Dr. Hummel provided today for eval for possible EVLA. Progress of Wound: Slightly improved. - Physical Exam Vital Signs Temp Pulse Resp BP 99.1 F 80 18 128/66 H 04/26/17 14:54 04/26/17 14:54 04/26/17 14:54 04/26/17 14:54 General: Alert, Oriented x3, Cooperative, No apparent distress Extremities: Edema, Peripheral Pulses Normal Skin: Ulcer/ Wound - L santoyo, L calf with no erythema, no malodor, no pus, no calor. There is pain, but no other clinical signs of acute bacterial infection noted. See wound/edema assessment below. Wound Measurements and Assessment WC - Nurse 1 - General Ulcer Measurement Start: 04/26/17 14:54 Freq: Status: Active Protocol: Activity Type Activity Date Activity User E-Sign Co-Sign Detail Recorded Client Recorded Date Recorded By Document 04/26/17 14:54 [id number] 04/26/17 15:01 04/26/17 14:54 Wound Center Nurse 1 [Ulcer Assessment] 3-left posterior calf -Combined with other wound No -Current Size (cm) - Length 0.8 -Current Size (cm) - Width 1.2 -Current Size (cm) - Depth 0.1 -Total Square Cm 0.96 -Photo Taken No -Epithelialization Medium 34-66% -Tunneling No -Undermining/Tunneling No -Circular Undermining No -Exudate Amt Small (1-33%) -Exudate Type Serosanguineous -Wound Margin Flat & Intact -Granulation Amt Large (67-100%) -Granulation Quality Red -Slough/Fibrin Yes -Necrosis Amt Small (1-33%) -Necrotic Tissue Type Adherent Slough -Structure Exposed N/A -Texture (Denice-wound Skin Appearance) Assessed Localized Edema -Moisture (Denice-wound Skin Appearance Assessed ) Dry/Scaly -Color (Denice-wound Skin Appearance) Assessed -Temperature (Denice-wound Skin No Abnormality Appearance) (Pt Warm) -Tenderness on Palpation (Denice-wound No Skin Appearance) -Ulcer Cleansing Rinsed/ Irrigated with Saline -Foul Odor after Cleansing No -Anesthetic Used 4% Lidocaine Solution 2-left anterior santoyo cluster -Combined with other wound No -Current Size (cm) - Length 10.0 -Current Size (cm) - Width 1.7 -Total Square Cm 17.00 -Photo Taken No -Epithelialization Small 1-33% -Tunneling No -Undermining/Tunneling No -Circular Undermining No -Exudate Amt Small (1-33%) -Exudate Type Serosanguineous -Wound Margin Flat & Intact -Granulation Amt Small (1-33%) -Granulation Quality Red -Slough/Fibrin Yes -Necrosis Amt Medium (34-66%) -Necrotic Tissue Type Adherent Slough -Structure Exposed N/A -Texture (Denice-wound Skin Appearance) Assessed Localized Edema -Moisture (Denice-wound Skin Appearance Assessed ) Dry/Scaly -Color (Denice-wound Skin Appearance) Assessed -Temperature (Denice-wound Skin No Abnormality Appearance) (Pt Warm) -Tenderness on Palpation (Denice-wound No Skin Appearance) -Ulcer Cleansing Rinsed/ Irrigated with Saline -Foul Odor after Cleansing No -Anesthetic Used 4% Lidocaine Solution 1-left lateral santoyo superior -Combined with other wound No -Current Size (cm) - Length 0.7 -Current Size (cm) - Width 0.1 -Current Size (cm) - Depth 0.1 -Total Square Cm 0.07 -Photo Taken No -Epithelialization Medium 34-66% -Tunneling No -Undermining/Tunneling No -Circular Undermining No -Exudate Amt Small (1-33%) -Exudate Type Serosanguineous -Wound Margin Flat & Intact -Granulation Amt Large (67-100%) -Granulation Quality Red -Slough/Fibrin Yes -Necrosis Amt Small (1-33%) -Necrotic Tissue Type Adherent Slough -Structure Exposed N/A -Texture (Denice-wound Skin Appearance) Assessed Localized Edema -Moisture (Denice-wound Skin Appearance Assessed ) Dry/Scaly -Color (Denice-wound Skin Appearance) Assessed -Temperature (Denice-wound Skin No Abnormality Appearance) (Pt Warm) -Tenderness on Palpation (Denice-wound No Skin Appearance) -Ulcer Cleansing Rinsed/ Irrigated with Saline -Foul Odor after Cleansing No -Anesthetic Used 4% Lidocaine Solution [Edema Assessment] -Lower Limb Edema Present Yes -Left Calf (cm) 41.0 -Left Ankle (cm) 25.0 WC - Nurse 2 - General Ulcer CM Notes Start: 04/26/17 14:54 Freq: Status: Active Protocol: Activity Type Activity Date Activity User E-Sign Co-Sign Detail Recorded Client Recorded Date Recorded By Document 04/26/17 15:37 MW [id number] 04/26/17 15:41 MW 04/26/17 15:37 Wound Center Nurse 2 [Procedure/Treatment] 3-left posterior calf -Time 15:37 -Correct Patient Yes -Correct Side, Site, Position Yes -Correct Procedure Yes -Procedure Performed Yes -Type of Procedure Debridement -Clinical Debridement Subcutaneous -Post Debridement Size (cm) - Length 0.9 -Post Debridement Size (cm) - Width 1.2 -Post Debridement Size (cm) - Depth 0.1 -Total Square Cm 1.08 -Wound/Ulcer Outcome Not Healed -Ulcer Cleansing Rinsed/ Irrigated with Saline -Foul Odor after Cleansing No -Bioengineered Tissue No -Bleeding Controlled with Pressure -Treatment Response Procedure Tolerated Well 2-left anterior santoyo cluster -Time 15:37 -Correct Patient Yes -Correct Side, Site, Position Yes -Correct Procedure Yes -Procedure Performed Yes -Type of Procedure Debridement -Clinical Debridement Subcutaneous -Post Debridement Size (cm) - Length 10.1 -Post Debridement Size (cm) - Width 1.8 -Post Debridement Size (cm) - Depth 0.3 -Total Square Cm 18.18 -Wound/Ulcer Outcome Not Healed -Ulcer Cleansing Rinsed/ Irrigated with Saline -Foul Odor after Cleansing No -Bioengineered Tissue No -Bleeding Controlled with Pressure -Treatment Response Procedure Tolerated Well 1-left lateral santoyo superior -Time 15:38 -Correct Patient Yes -Correct Side, Site, Position Yes -Correct Procedure Yes -Procedure Performed Yes -Type of Procedure Debridement -Clinical Debridement Subcutaneous -Post Debridement Size (cm) - Length 0.8 -Post Debridement Size (cm) - Width 0.2 -Post Debridement Size (cm) - Depth 0.1 -Total Square Cm 0.16 -Wound/Ulcer Outcome Not Healed -Ulcer Cleansing Wound Cleanser -Foul Odor after Cleansing No -Bioengineered Tissue No -Bleeding Controlled with Pressure -Treatment Response Procedure Tolerated Well [See Physician Procedure note for Specifics] Pain Scale: 0-10 Numeric [Pain] -Is Patient Pain Free? Yes Debridement Note Post-Debridement Measurements/Treatment WC - Nurse 2 - General Ulcer CM Notes Start: 04/26/17 14:54 Freq: Status: Active Protocol: Activity Type Activity Date Activity User E-Sign Co-Sign Detail Recorded Client Recorded Date Recorded By Document 04/26/17 15:37 MW [id number] 04/26/17 15:41 MW 04/26/17 15:37 Wound Center Nurse 2 3-left posterior calf -Time 15:37 -Correct Patient Yes -Correct Side, Site, Position Yes -Correct Procedure Yes -Procedure Performed Yes -Type of Procedure Debridement -Clinical Debridement Subcutaneous -Post Debridement Size (cm) - Length 0.9 -Post Debridement Size (cm) - Width 1.2 -Post Debridement Size (cm) - Depth 0.1 -Total Square Cm 1.08 -Wound/Ulcer Outcome Not Healed -Ulcer Cleansing Rinsed/ Irrigated with Saline -Foul Odor after Cleansing No -Bioengineered Tissue No -Bleeding Controlled with Pressure -Treatment Response Procedure Tolerated Well 2-left anterior santoyo cluster -Time 15:37 -Correct Patient Yes -Correct Side, Site, Position Yes -Correct Procedure Yes -Procedure Performed Yes -Type of Procedure Debridement -Clinical Debridement Subcutaneous -Post Debridement Size (cm) - Length 10.1 -Post Debridement Size (cm) - Width 1.8 -Post Debridement Size (cm) - Depth 0.3 -Total Square Cm 18.18 -Wound/Ulcer Outcome Not Healed -Ulcer Cleansing Rinsed/ Irrigated with Saline -Foul Odor after Cleansing No -Bioengineered Tissue No -Bleeding Controlled with Pressure -Treatment Response Procedure Tolerated Well 1-left lateral santoyo superior -Time 15:38 -Correct Patient Yes -Correct Side, Site, Position Yes -Correct Procedure Yes -Procedure Performed Yes -Type of Procedure Debridement -Clinical Debridement Subcutaneous -Post Debridement Size (cm) - Length 0.8 -Post Debridement Size (cm) - Width 0.2 -Post Debridement Size (cm) - Depth 0.1 -Total Square Cm 0.16 -Wound/Ulcer Outcome Not Healed -Ulcer Cleansing Wound Cleanser -Foul Odor after Cleansing No -Bioengineered Tissue No -Bleeding Controlled with Pressure -Treatment Response Procedure Tolerated Well Pain Scale: 0-10 Numeric Is Patient Pain Free? Yes Wound debrided: L leg x 3 Laterality: Left Wound Grade/Stage: full thickness originally trauma non-healing d/t venous insufficiency Type of Debridement: Excisional debridement Anesthesia Used: 4% Lidocaine Solution Depth: Down to and including healthy tissue, in the subcutaneous layer Percentage of wound debrided: 100 Instrument Used: 3mm curette Tissue Removed: fibrous slough Severity: Fat Layer Exposed Amount of bleeding with debridement: Mild Bleeding Controlled with: Pressure, Compression and gauze Patient tolerated procedure well Assessment/Plan Active Problems Dog bite of calf (Acute) Edema leg (Chronic) Type 2 diabetes mellitus with other skin ulcer (Acute) Venous insufficiency (chronic) (peripheral) (Acute) Assessment: See diagnoses Plan: Exam. A total of 15 minutes was spent [id number] with the patient in addition to time spent on debridment, and over half of that time was spent on counsling, coordination of care, and discussing her new diagnosis. SQ/ excisional debridement L leg ulcers as above. Stop daniel, collagen hydrogel, adaptic, ABDs. Venous study reviewed. Start hydrofera blue d/t pain, increase compression with 3M 2-layer coban wrap. Return on for nurse visit for compression wrap change, then 1 week with me. Pt continues to refuse arterial testing due to location of ulcers, but pedal pulses are strongly palpable and confirmed with handheld doppler. If ulcers do not improve, will order arterial testing. Pt recently had lab work done, will obtain from her PCP--did not yet receive. Discussed importance of tobacco cessation and smoking's effects on wound healing. Discussed importance of tight blood sugar control. Discussed importance of adequate nutrition, especially increased protein intake, to promote healing. Keep dry in shower, will wash L leg with wrap changes. Monitor for redness, pus, malodor, warmth, increased pain, increased swelling as well as for N/V/F/C and go to the ED with these. RTC 1 week, call with questions prior to f/u appt. Referral to Dr. Hummel provided for venous insufficiency with non-healing ulcers LLE. Also has vein incompetence in RLE.
== END 2017-05-21 23:59 ==
LOC: WC 14:50
PROVIDERS: Family Provider Nurse Practitioner Family; PCP Nurse Practitioner Family; Visit Provider Podiatrist Foot & Ankle Surgery
DX: I87.2 Venous insufficiency (chronic) (peripheral) (principal); S81.852A Open bite, left lower leg, initial encounter; W54.0XXA Bitten by dog, initial encounter; R60.0 Localized edema; E11.9 Type 2 diabetes mellitus without complications